=== PATIENT | male | born 1975 | race Caucasian/White ===

== ENCOUNTER 2017-02-09 22:09 | Emergency (ER) | payer SELFPAY ==
--- NOTE | 2017-02-09 23:10 | ER Document Report ---
ED Cardiac - General Mode of Arrival: Ambulatory Information source: Patient TRAVEL OUTSIDE OF THE [place] IN LAST 30 DAYS: No - HPI Patient complains to provider of: Chest pain, Shortness of breath Was the onset of pain: Sudden When did pain begin: 21:15 Is the pain a: New problem Chest pain radiation location: Left jaw, Left arm, Right jaw Chest pain precipitating factors: Coughing Cardiac risk factors: Hypertension, Smoker, + Family history Positive cardiac history: No Associated symptoms: Jaw pain, Shortness of breath Similar symptoms previously: No Recently seen / treated by doctor: No <AUSTIN MELGAR - Last Filed: 02/10/17 02:40> <CHOLO AMANDA - Last Filed: 02/10/17 06:09> <JANETT NERI - Last Filed: 02/10/17 08:55> - General Chief Complaint: Chest pain, jaw pain, L arm pain Stated Complaint: CHEST PAIN Time Seen by Provider: 02/09/17 22:47 Notes: Patient is a 42 year old male presenting to the emergency department for chest pain that was onset this evening around 21:15. Patient states he finished smoking a cigarette and had some sudden onset bilateral jaw pain. Patient then states he had some coughing episodes and felt short of breath. Patient went inside and drank some water, sat down, and then had sudden onset chest pain. Patient states he still has chest pain now in the emergency department. Patient states his pain was in his left side of his chest and it "felt like it was going to explode." Patient states he took a shower with no relief to the chest pain and he also noticed some tingling down the back of his left arm. Patient states he has been taking 2 ibuprofen each morning for about 1 week for some pain in his back. Patient has a history of hypertension, smoking, and his family has a cardiac history. (AUSTIN MELGAR) - Related Data Allergies/Adverse Reactions: No Known Allergies Allergy (Verified 02/10/17 08:31) Past Medical History - General Information source: Patient - Social History Smoking Status: Current Every Day Smoker Cigarette use (# per day): Yes Chew tobacco use (# tins/day): Yes Frequency of alcohol use: Occasional Drug Abuse: None Family History: Other - grandparents [place], grandmother COPD and triple bypass Patient has suicidal ideation: No Patient has homicidal ideation: No - Past Medical History Cardiac Medical History: Reports: Hx Hypertension Surgical Hx: Negative <AUSTIN MELGAR - Last Filed: 02/10/17 02:40> Review of Systems - Review of Systems Constitutional: No symptoms reported EENT: No symptoms reported Cardiovascular: See HPI, Chest pain, Other - jaw pain Respiratory: See HPI, Cough Gastrointestinal: No symptoms reported Genitourinary: No symptoms reported Male Genitourinary: No symptoms reported Musculoskeletal: No symptoms reported Skin: No symptoms reported Hematologic/Lymphatic: No symptoms reported Neurological/Psychological: See HPI, Tingling -: Yes All other systems reviewed and negative <AUSTIN MELGAR - Last Filed: 02/10/17 02:40> Physical Exam <AUSTIN MELGAR - Last Filed: 02/10/17 02:40> <CHOLO AMANDA - Last Filed: 02/10/17 06:09> <JANETT NERI - Last Filed: 02/10/17 08:55> - Vital signs Vitals: Temp Pulse BP Pulse Ox 98.1 F 86 144/109 H 98 02/09/17 22:35 02/09/17 22:35 02/09/17 22:35 02/09/17 22:35 - Notes Notes: GENERAL: Alert, interacts well. No acute distress. HEAD: Normocephalic, atraumatic. EYES: Pupils equal, round, and reactive to light. Extraocular movements intact. ENT: Oral mucosa moist, tongue midline. NECK: Full range of motion. Supple. Trachea midline. LUNGS: Clear to auscultation bilaterally, no wheezes, rales, or rhonchi. No respiratory distress. HEART: Regular rate of 75 and regular rhythm. No murmurs, gallops, or rubs. ABDOMEN: Soft, non-tender. Non-distended. Bowel sounds present in all 4 quadrants. EXTREMITIES: Moves all 4 extremities spontaneously. No edema, radial and dorsalis pedis pulses 2/4 bilaterally. No cyanosis. NEUROLOGICAL: Alert and oriented x3. Normal speech. PSYCH: Normal affect, normal mood. SKIN: Warm, dry, normal turgor. No rashes or lesions noted. (AUSTIN MELGAR) Course - Laboratory Result Diagrams: 02/09/17 22:50 02/09/17 22:50 - Consults [facility] Transfer Time consulted: 12:13 <AUSTIN MELGAR - Last Filed: 02/10/17 02:40> - Laboratory Result Diagrams: 02/09/17 22:50 02/09/17 22:50 <CHOLO AMANDA - Last Filed: 02/10/17 06:09> - Laboratory Result Diagrams: 02/09/17 22:50 02/09/17 22:50 <JANETT NERI - Last Filed: 02/10/17 08:55> - Re-evaluation Re-evalutation: 02/10/17 00:10 Patient has a positive troponin. Recent chest pain resolved with sublingual nitroglycerin tablet but returned with Nitropaste. We will give more sublingual nitroglycerin. We called [facility] for transfer for a N-STEMI. EKG shows no ST elevation. Patient will be started on metoprolol and Lovenox. (AUSTIN MELGAR) 02/10/17 08:55 Patient reevaluated is stable transfer is here to take the patient to the [facility] (JANETT NERI) - Vital Signs Vital signs: Temp Pulse Resp BP Pulse Ox 98.4 F 82 17 122/87 H 96 02/10/17 08:45 02/09/17 22:36 02/10/17 08:02 02/10/17 08:02 02/10/17 08:02 - Laboratory Laboratory results interpreted by me: 02/09/17 02/09/17 22:50 22:50 BUN 22 H Creatine Kinase 210 H CK-MB (CK-2) 5.12 H - Consults [facility] Transfer Reason for consultation: 02/10/17 00:13 Contacted [facility] for possible transfer, they will contact cardiology and call back. 02/10/17 00:20 Call back from [facility]. Spoke with Dr. Lamonte Ulloa who admits the patient for transfer; he will call back if there will be a wait for a bed. (AUSTIN MELGAR) Critical Care Note - Critical Care Note Total time excluding time spent on procedures (mins): 35 <CHOLO AMANDA - Last Filed: 02/10/17 06:09> Discharge <AUSTIN MELGAR - Last Filed: 02/10/17 02:40> <CHOLO AMANDA - Last Filed: 02/10/17 06:09> <JANETT NERI - Last Filed: 02/10/17 08:55> - Discharge Clinical Impression: NSTEMI (non-ST elevated myocardial infarction) Disposition: [facility] Attestation: 02/10/17 01:52 I personally performed the services described in the documentation, reviewed and edited the documentation which was dictated to the scribe in my presence, and it accurately records my words and actions. (CHOLO AMANDA) Scribe Documentation - Scribe Written by Catie:: Catie Buck, 02/10/17 12:17 acting as scribe for :: Trell <AUSTIN MELGAR - Last Filed: 02/10/17 02:40>
[2017-02-09] MEDS: NITROGLYCERIN 0.4 MG/TAB 25 TAB/BOTTLE SL PRN (23:21)
[2017-02-09 23:24] LABS: ABSOLUTE BASOPHILS # (AUTO) 0.1 10^3/uL (0.0-0.2); ABSOLUTE EOSINOPHILS # (AUTO) 0.1 10^3/uL (0.0-0.6); ABSOLUTE LYMPHOCYTES (AUTO) 1.9 10^3/uL (0.5-4.7); ABSOLUTE MONOCYTES (AUTO) 0.7 10^3/uL (0.1-1.4); ABSOLUTE NEUT (AUTO) 6.6 10^3/uL (1.7-8.2); BASOPHILS % (AUTO) 0.7 % (0-2); HEMATOCRIT 45.8 % (37.9-51.0); HEMOGLOBIN 16.1 g/dL (13.5-17.0); HGB HCT DIFFERENCE 2.5; LYMPHOCYTES % (AUTO) 20.4 % (13-45); MEAN CORPUSCULAR HEMOGLOBIN 31.5 pg (27.0-33.4); MEAN CORPUSCULAR HGB CONC 35.1 g/dL (32.0-36.0); MEAN CORPUSCULAR VOLUME 90 fl (80-97); MONOCYTES % (AUTO) 7.2 % (3-13); RED BLOOD COUNT 5.11 10^6/uL (4.35-5.55); RED CELL DISTRIBUTION WIDTH 13.1 % (11.5-14.0); SEGMENTED NEUTROPHILS % (AUTO) 70.7 % (42-78); WHITE BLOOD COUNT 9.3 10^3/uL (4.0-10.5)
[2017-02-09 23:28] LABS: ALANINE AMINOTRANSFERASE 46 U/L (21-72); ALBUMIN 4.3 g/dL (3.5-5.0); ALKALINE PHOSPHATASE 90 U/L (38-126); ANION GAP 14 (5-19); ASPARTATE AMINO TRANSFERASE 29 U/L (17-59); BILIRUBIN,DIRECT 0.2 mg/dL (0.0-0.4); BILIRUBIN,TOTAL 0.3 mg/dL (0.2-1.3); BLOOD UREA NITROGEN 22 mg/dL (7-20); CALCIUM 9.4 mg/dL (8.4-10.2); CARBON DIOXIDE 25 mmol/L (22-30); CHLORIDE 98 mmol/L (98-107); CREATINE KINASE 210 U/L (55-170); CREATININE RESULT 1.03 mg/dL (0.52-1.25); GLUCOSE 106 mg/dL (75-110); SODIUM 137.1 mmol/L (137-145); TOTAL PROTEIN 6.6 g/dL (6.3-8.2)
[2017-02-09] MEDS ORDERED: NITROGLYCERIN 2% OINTMENT 1 GM PACKET TP ONE (23:33)
[2017-02-09 23:39] LABS: CREATINE KINASE MB 5.12 ng/mL (<4.55)
[2017-02-09 23:42] LABS: TROPONIN I 0.244 ng/mL
--- NOTE | 2017-02-09 23:55 | EKG REPORT ---
SEVERITY:- NORMAL ECG - SINUS RHYTHM : Confirmed by: Ganesh Delgado 09-Feb-2017 23:54:42
[2017-02-10] MEDS ORDERED: METOPROLOL TARTRATE 50 MG TABLET PO ONE (00:11)
[2017-02-10] MEDS ORDERED: ENOXAPARIN SODIUM INJ 100 MG/1 ML DISP.SYRIN SUBCUT SCH ×2 (00:15→10:00)
[2017-02-10] MEDS: NITROGLYCERIN 0.4 MG/TAB 25 TAB/BOTTLE SL PRN (00:22)
[2017-02-10 09:02] VITALS: BP 120/79
--- NOTE | 2017-02-10 10:40 | EKG REPORT ---
SEVERITY:- NORMAL ECG - SINUS RHYTHM : Confirmed by: Ana Paula Menendez MD 10-Feb-2017 10:40:16
== END 2017-02-10 09:03 | disposition short-term general hospital (02) ==
LOC: ER 22:09
DX: I21.4 Non-ST elevation (NSTEMI) myocardial infarction (principal); R07.9 Chest pain, unspecified; R68.84 Jaw pain; M79.602 Pain in left arm; R05 Cough; F17.210 Nicotine dependence, cigarettes, uncomplicated
CPT/HCPCS: 36415; 71010; 80053; 82550; 82553; 84484; 85025; 93005; 93010; 99291

== ENCOUNTER 2017-06-22 16:30 | Emergency (ER) | payer SELFPAY ==
--- NOTE | 2017-06-22 16:58 | ER Document Report ---
ED GI/ - General Mode of Arrival: Ambulatory Information source: Patient TRAVEL OUTSIDE OF THE [place] IN LAST 30 DAYS: No - HPI Patient complains to provider of: Abdominal pain Onset: Other - 3 days Timing/Duration: Persistent Quality of pain: Achy Severity at maximum: Moderate Severity in ED: Moderate Pain Level: 4 Location: RLQ, Suprapubic Associated symptoms: Chills, Fever, Hematuria <JAYLEEN ARREDONDO - Last Filed: 06/22/17 17:42> <CATHI PIÑA - Last Filed: 06/22/17 19:50> - General Stated Complaint: STOMACH PAIN Time Seen by Provider: 06/22/17 16:33 - HPI Notes: 06/22/17 17:10 Patient is a 42-year-old male who was sent to the emergency room from radiology department for right iliac artery dissection noted on outpatient CT scan that was being performed, patient was saw primary care provider earlier in the day for a lower abdominal pain this been going on for the past 3-4 days, which is associated with fever and chills, and microscopic hematuria which was found at his doctor visit this morning, he was sent over to get the outpatient CT scan, his last meal was sometime yesterday, he has a history of an HI in January and currently takes Lipitor, Plavix, aspirin, lisinopril and metoprolol, he did not take any of these medications today as he typically takes them at nighttime ( JAYLEEN ARREDONDO) - Related Data Allergies/Adverse Reactions: No Known Allergies Allergy (Verified 06/22/17 17:14) Home Medications: Current Home Medications Aspirin 81 mg PO QHS 06/22/17 [History] Atorvastatin Calcium [Lipitor 40 mg Tablet] 40 mg PO QHS 06/22/17 [History] Clopidogrel Bisulfate [Plavix 75 mg Tablet] 75 mg PO QHS 06/22/17 [History] Lisinopril 10 mg PO QHS 06/22/17 [History] Metoprolol Succinate [Toprol Xl] 12.5 mg PO QHS 06/22/17 [History] Past Medical History - General Information source: Patient - Social History Smoking Status: Current Every Day Smoker Family History: Other - grandparents [place], grandmother COPD and triple bypass - Past Medical History Cardiac Medical History: Reports: Hx Hypertension Renal/ Medical History: Denies: Hx Peritoneal Dialysis <JAYLEEN ARREDONDO - Last Filed: 06/22/17 17:42> Review of Systems - Review of Systems Constitutional: Chills, Fever EENT: No symptoms reported Cardiovascular: No symptoms reported Respiratory: No symptoms reported Gastrointestinal: Abdominal pain Genitourinary: No symptoms reported Male Genitourinary: No symptoms reported Musculoskeletal: No symptoms reported Skin: No symptoms reported Hematologic/Lymphatic: No symptoms reported Neurological/Psychological: No symptoms reported -: Yes All other systems reviewed and negative <JAYLEEN ARREDONDO - Last Filed: 06/22/17 17:42> Physical Exam - Vital signs Interpretation: Normal - General General appearance: Appears well, Alert - HEENT Head: Normocephalic, Atraumatic Eyes: Normal Pupils: PERRL - Respiratory Respiratory status: No respiratory distress Chest status: Nontender Breath sounds: Normal Chest palpation: Normal - Cardiovascular Rhythm: Regular Heart sounds: Normal auscultation Murmur: No - Abdominal Inspection: Normal Distension: No distension Bowel sounds: Normal Tenderness: Tender - Tender to palpate across lower abdomen, mainly in suprapubic region Organomegaly: No organomegaly - Back Back: Normal, Nontender - Extremities General upper extremity: Normal inspection, Nontender, Normal color, Normal ROM , Normal temperature General lower extremity: Normal inspection, Nontender, Normal color, Normal ROM , Normal temperature, Normal weight bearing. No: Luli's sign Foot: Nontender, Other - Right foot, cool to touch, 2+ DP pulses, brisk capillary refill. No: Edema - Neurological Neuro grossly intact: Yes Cognition: Normal Orientation: AAOx4 Wilkinson Coma Scale Eye Opening: Spontaneous Minnie Coma Scale Verbal: Oriented Wilkinson Coma Scale Motor: Obeys Commands Wilkinson Coma Scale Total: 15 Speech: Normal Motor strength normal: LUE, RUE, LLE, RLE Sensory: Normal - Psychological Associated symptoms: Normal affect, Normal mood - Skin Skin Temperature: Warm Skin Moisture: Dry Skin Color: Normal <JAYLEEN ARREDONDO - Last Filed: 06/22/17 17:42> - Vital signs Vitals: Temp Pulse Resp BP Pulse Ox 98.3 F 80 20 126/94 H 100 06/22/17 17:04 06/22/17 17:04 06/22/17 17:04 06/22/17 17:04 06/22/17 17:04 Course - Laboratory Result Diagrams: 06/22/17 17:28 06/22/17 17:28 - Diagnostic Test Radiology reviewed: Image reviewed, Reports reviewed <JAYLEEN ARREDONDO - Last Filed: 06/22/17 17:42> - Laboratory Result Diagrams: 06/22/17 17:28 06/22/17 17:28 <CATHI PIÑA - Last Filed: 06/22/17 19:50> - Re-evaluation Re-evalutation: 06/22/17 17:11 I received a call from Dr. Land, radiology stating that she was sending patient over to the emergency department for evaluation and transfer, likely to [facility] where she already spoke with the vascular surgeon and the interventional radiologist, Dr. Roblero and Dr. Rankin regarding this patient, however they did not feel it was safe for him to travel by private vehicle so they recommended he come to the emergency room so that we could make transfer arrangements by ambulance I did place a call to [facility] transfer center, spoke with Renetta Lynch, requested callback from vascular surgeon regarding this patient for official transfer acceptance 06/22/17 17:38 Patient was discussed with Dr. Rankin, interventional radiologist at [facility] to accept patient for transfer (JAYLEEN ARREDONDO) 06/22/17 19:00 Transport in ED. Patient reevaluated and he is stable for transfer. (CATHI PIÑA) - Vital Signs Vital signs: Temp Pulse Resp BP Pulse Ox 98.1 F 101 H 20 123/90 H 99 06/22/17 18:40 06/22/17 18:40 06/22/17 18:40 06/22/17 18:40 06/22/17 18:40 - Laboratory Laboratory results interpreted by me: 06/22/17 17:28 WBC 11.9 H Absolute Neutrophils 8.5 H Discharge <JAYLEEN ARREDONDO - Last Filed: 06/22/17 17:42> <CATHI PIÑA - Last Filed: 06/22/17 19:50> - Discharge Clinical Impression: Iliac artery dissection Condition: Serious Disposition: [facility] Referrals: LAURA RODRIGUEZ MD [Primary Care Provider] - Follow up as needed
--- NOTE | 2017-06-22 17:30 | RADIOLOGY REPORT (SQ) ---
EXAM DESCRIPTION: CHEST PA/LAT COMPLETED DATE/TIME: 06/22/2017 5:20 pm REASON FOR STUDY: pain COMPARISON: 02/09/2017 EXAM PARAMETERS: NUMBER OF VIEWS: two views TECHNIQUE: Digital Frontal and Lateral radiographic views of the chest acquired. RADIATION DOSE: NA LIMITATIONS: none FINDINGS: LUNGS AND PLEURA: No opacities, masses or pneumothorax. No pleural effusion. MEDIASTINUM AND HILAR STRUCTURES: No masses or contour abnormalities. HEART AND VASCULAR STRUCTURES: Heart normal size. No evidence for failure. BONES: No acute findings. HARDWARE: None in the chest. OTHER: No other significant finding. IMPRESSION: NO SIGNIFICANT RADIOGRAPHIC FINDING IN THE CHEST. TECHNICAL DOCUMENTATION: JOB ID: [id number] [employer] [facility]- All Rights Reserved
[2017-06-22 17:39] LABS: ABSOLUTE BASOPHILS # (AUTO) 0.1 10^3/uL (0.0-0.2); ABSOLUTE EOSINOPHILS # (AUTO) 0.1 10^3/uL (0.0-0.6); ABSOLUTE LYMPHOCYTES (AUTO) 2.1 10^3/uL (0.5-4.7); ABSOLUTE MONOCYTES (AUTO) 1.1 10^3/uL (0.1-1.4); ABSOLUTE NEUT (AUTO) 8.5 10^3/uL (1.7-8.2); BASOPHILS % (AUTO) 0.6 % (0-2); EOSINOPHILS % (AUTO) 1.2 % (0-6); HEMATOCRIT 46.5 % (37.9-51.0); HEMOGLOBIN 16.1 g/dL (13.5-17.0); HGB HCT DIFFERENCE 1.8; LYMPHOCYTES % (AUTO) 17.6 % (13-45); MEAN CORPUSCULAR HEMOGLOBIN 32.1 pg (27.0-33.4); MEAN CORPUSCULAR HGB CONC 34.5 g/dL (32.0-36.0); MEAN CORPUSCULAR VOLUME 93 fl (80-97); MONOCYTES % (AUTO) 9.3 % (3-13); RED CELL DISTRIBUTION WIDTH 12.9 % (11.5-14.0); SEGMENTED NEUTROPHILS % (AUTO) 71.3 % (42-78); WHITE BLOOD COUNT 11.9 10^3/uL (4.0-10.5)
[2017-06-22 17:51] LABS: PROTHROMBIN TIME 13.6 SEC (11.4-15.4)
[2017-06-22 17:52] LABS: PARTIAL THROMBOPLASTIN TIME 29.5 SEC (23.5-35.8)
[2017-06-22 18:02] LABS: ALANINE AMINOTRANSFERASE 40 U/L (21-72); ALKALINE PHOSPHATASE 111 U/L (38-126); ANION GAP 12 (5-19); ASPARTATE AMINO TRANSFERASE 18 U/L (17-59); BILIRUBIN,DIRECT 0.4 mg/dL (0.0-0.4); BILIRUBIN,TOTAL 0.9 mg/dL (0.2-1.3); BLOOD UREA NITROGEN 14 mg/dL (7-20); CALCIUM 9.2 mg/dL (8.4-10.2); CARBON DIOXIDE 24 mmol/L (22-30); CHLORIDE 101 mmol/L (98-107); CREATININE RESULT 1.03 mg/dL (0.52-1.25); GLUCOSE 82 mg/dL (75-110); POTASSIUM 4.4 mmol/L (3.6-5.0); SODIUM 137.1 mmol/L (137-145); TOTAL PROTEIN 6.6 g/dL (6.3-8.2)
[2017-06-22 18:59] VITALS: BP 123/90
[2017-06-22] MEDS ORDERED: MORPHINE SULFATE 10 MG/ML INJ IV SCH (20:00)
== END 2017-06-22 19:04 | disposition short-term general hospital (02) ==
LOC: ER 16:30
DX: I77.72 Dissection of iliac artery (principal); R10.30 Lower abdominal pain, unspecified; Z79.899 Other long term (current) drug therapy; F17.200 Nicotine dependence, unspecified, uncomplicated
CPT/HCPCS: 99285; 96374; 36415; 85025; 85610; 85730; 80053; 71020; J2270

== ENCOUNTER → 2017-06-22 | Outpatient (CLI) | payer SELFPAY ==
--- NOTE | 2017-06-22 15:20 | RADIOLOGY REPORT (SQ) ---
EXAM DESCRIPTION: CT ABD/PELVIS NO ORAL OR IV COMPLETED DATE/TIME: 06/22/2017 2:39 pm REASON FOR STUDY: ABD PAIN, BILAT LOWER QUAD (R10.31, R10.32) R10.31 RIGHT LOWER QUADRANT PAIN R10. 32 LEFT LOWER QUADRANT PAIN COMPARISON: No previous TECHNIQUE: CT scan of the abdomen and pelvis performed without intravenous or oral contrast. Images reviewed with lung, soft tissue, and bone windows. Reconstructed coronal and sagittal MPR images revi ewed. All images stored on PACS. All CT scanners at this facility use dose modulation, iterative reconstruction, and/or weight based d osing when appropriate to reduce radiation dose to as low as reasonably achievable (ALARA). [facility]: Dose Right [facility]: CareDose [facility]: Dose Right [facility]: Teradose 4D [facility]: [employer] RADIATION DOSE: Up-to-date CT equipment and radiation dose reduction techniques were employed. CTDIv ol: 7.1 mGy. DLP: 364 mGy-cm.mGy. LIMITATIONS: None. FINDINGS: Patient gives a 2 to 3 day history of intense pelvic pain inferior to the level of the umb ilicus, on axial images 45 through 56, there is abnormal deep retroperitoneal stranding in the fat al jaun the distal abdominal aorta and left proximal common iliac artery. Arteritis or dissection could be present. This finding was discussed with Miriam NAYLOR, follow-up CT angio abdomen pelvis will be performed. LOWER CHEST: No significant findings. No nodules or infiltrates. NON-CONTRASTED LIVER, SPLEEN, ADRENALS: 1 cm cyst or hemangioma left lobe liver lateral to the falcif orm ligament on axial image 18. Spleen, adrenal glands unremarkable. PANCREAS: No masses. No peripancreatic inflammatory changes. GALLBLADDER: No identified stones by CT criteria. No inflammatory changes to suggest cholecystitis. RIGHT KIDNEY AND URETER: No suspicious masses. Assessment limited by lack of IV contrast. No signif icant calcifications. No hydronephrosis or hydroureter. LEFT KIDNEY AND URETER: No suspicious masses. Assessment limited by lack of IV contrast. No signifi cant calcifications. No hydronephrosis or hydroureter. AORTA AND RETROPERITONEUM: No abdominal aortic aneurysm. Other findings as above. BOWEL AND PERITONEAL CAVITY: No obvious masses or inflammatory changes. No free fluid. APPENDIX: Surgically absent PELVIS, BLADDER, AND ABDOMINAL WALL:No abnormal masses. No free fluid. Bladder normal. BONES: No significant findings. OTHER: No other significant finding. IMPRESSION: Inflammation in the deep retroperitoneum para-aortic region, tracking along the left pro ximal common iliac artery. Differential includes vascular dissection versus large vessel arteritis. CT angio will be performed shortly for followup. COMMENT: Quality ID # 436: Final reports with documentation of one or more dose reduction techniques (e.g., Automated exposure control, adjustment of the mA and/or kV according to patient size, use of iterative reconstruction technique) TECHNICAL DOCUMENTATION: JOB ID: [id number] 2008 [employer]- All Rights Reserved
--- NOTE | 2017-06-22 16:11 | RADIOLOGY REPORT (SQ) ---
EXAM DESCRIPTION: CTA ABDOMEN/PELVIS W WO COMPLETED DATE/TIME: 06/22/2017 3:37 pm REASON FOR STUDY: POSSIBLE DISSECTION UMBILICAL PAIN R10.31 RIGHT LOWER QUADRANT PAIN R10.32 LEFT LOWER QUADRANT PAIN COMPARISON: CT abdomen pelvis without IV contrast 06/22/2017 TECHNIQUE: CT scan of the abdominal aorta extending to the right and left common femoral bifurcation performed with and without intravenous contrast using helical scanning technique with dynamic intrav enous contrast injection. Images reviewed with lung, soft tissue, and bone windows. Reconstructed cor onal and sagittal MPR images reviewed. All images stored on PACS. Advanced 3D imaging as volume rendering, MIPS, SSD performed? yes All CT scanners at this facility use dose modulation, iterative reconstruction, and/or weight based d osing when appropriate to reduce radiation dose to as low as reasonably achievable (ALARA). [facility]: Dose Right [facility]: CareDose [facility]: Dose Right [facility]: Teradose 4D [facility]: [employer] CONTRAST TYPE AND DOSE: 52.3 mL Isovue 370- low osmolar. RENAL FUNCTION: Creatinine 1.1 LIMITATIONS: None. FINDINGS: AORTA AND VESSELS: There is a left proximal common iliac artery dissection, from the origi n of the left proximal common iliac artery down to the level of the left common iliac bifurcation int o the external and internal iliac vessels. Over 50% diameter narrowing of the proximal left common i liac artery is present. There is a false lumen that opacifies with contrast along the dorsal aspect of the left common iliac artery, with mild aneurysmal dilatation at this level 17 mm in diameter. Mi nimal inflammatory stranding and along the periphery of the left common iliac artery. Left internal and external iliac arteries are unremarkable. Right common iliac artery is intact. Remainder of the abdominal aorta and major visceral arteries are unremarkable. 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 This result was discussed with Miriam NAYLOR, 1600 hours 06/22/2017 LUNG BASES: No significant findings. No nodules or infiltrates. LIVER: 1 cm hemangioma in the left lobe liver axial image 40. SPLEEN: Normal size. No focal lesions. PANCREAS: No masses. No significant calcifications. No adjacent inflammation or peripancreatic fluid collections. Pancreatic duct not dilated. GALLBLADDER: No identified stones by CT criteria. No inflammatory changes to suggest cholecystitis. ADRENAL GLANDS: No significant masses or asymmetry. RIGHT KIDNEY AND URETER: No mass, calculi or urinary tract obstruction. LEFT KIDNEY AND URETER: No mass, calculi or urinary tract obstruction. RETROPERITONEUM: No retroperitoneal adenopathy, hemorrhage or masses. BOWEL AND PERITONEAL CAVITY: No masses or inflammatory changes. No free fluid or peritoneal masses. Few colonic diverticuli without CT evidence of acute diverticulitis. APPENDIX: Surgically absent ABDOMINAL WALL: No masses. No hernias. BONY STRUCTURES: No significant or acute findings. PELVIS: No other significant finding. 3-D IMAGING: Confirms the above findings. IMPRESSION: Left proximal common iliac artery dissection. COMMENT: Pertinent findings on the imaging study reported as a CRITICAL RESULT to VALDEMAR RYDER at16:00 on 06/22/2017. Category of Critical Result: Left proximal common iliac artery dissection TECHNICAL DOCUMENTATION: JOB ID: [id number] Quality ID # [id number]: Final reports with documentation of one or more dose reduction techniques (e.g., Au tomated exposure control, adjustment of the mA and/or kV according to patient size, use of iterative reconstruction technique) 2010 [employer]- All Rights Reserved
== END ==
LOC: RAD 14:20
PROVIDERS: ATTEND Physician Assistant
DX: R10.31 Right lower quadrant pain (principal); R10.32 Left lower quadrant pain
CPT/HCPCS: 74174; 74176; 82565

== ENCOUNTER → 2017-10-22 | Outpatient (CLI) | payer BC, MEDICAID ==
--- NOTE | 2017-10-22 16:55 | DRAGON STRESS TEST REPORT ---
EXERCISE CARDIOLITE STRESS TEST USING SINGLE PHOTON EMMISION COMPUTERIZED TOMOGRAPHIC. DATE OF PROCEDURE: October 22, 2017, INDICATION : Chest pain CARDIAC RISK FACTORS: Hypertension, dyslipidemia, history of non-STEMI RESTING EKG: Sinus rhythm without any baseline ST-T wave changes. STRESS EKG: No significant changes noted with exercise stress test. PROCEDURE REPORT: Baseline heart rate 89 beats per minute with blood pressure of 106/82. Patient had no significant complaints. Patient exercised for a total of 11 minutes on standard Sarkis protocol.. Exercise stopped because of fatigue and shortness of breath. No chest pain reported.. No significant EKG changes were noted. Patient had no significant complaints during the procedure or postprocedure. Patient achieved a peak heart rate of 153 bpm which is 85% of predicted maximum. Peak blood pressure was noted to be 151/98. Double product achieved was 21 kcal. CONCLUSIONS: Clinically and electrocardiographically negative stress test at adequate double product.. NUCLEAR DATA: At rest the patient was given 13.09 millicuries of technetium 99 sestamibi injected intravenously. As per protocol rest gated SPECT images were obtained. Subsequently the stress dose of 37.7 millicuries of technetium 99 sestamibi was injected intravenously at peak exercise and patient continued to exercise for additional 1-2 minutes. As per protocol stress gated images were obtained. NUCLEAR INTERPRETATION: Both raw and processed data were used for interpretation. Visual, qualitative, computer-generated quantitative data was used. There was good myocardial uptake of technetium compound. Motion artifact and soft tissue attenuations were noted. Increased visceral uptake was noted. No definitive areas of transient perfusion defect noted, mild decreased uptake was noted in the basal interventricular septal area in the stress images but is felt to be artifactual as there were no corresponding wall motion abnormalities. No definitive areas of fixed perfusion defect or scars noted. EKG gated imaging showed LV EF at 64 %, rest and stress gated EF similar visually. T. I D. ratio was 0.96. Lung heart ratio noted to be within normal limits 0.35. No significant extracardiac and abnormal radiotracer activities were noted. RV free wall uptake was noted to be WNL. IMPRESSION: Also refer to comments under nuclear interpretation. Also test results needs to be interpreted in the context of pretest probability. 1. No definitive areas of transient perfusion defect noted. 2. There is no definitive scintigraphic evidence of myocardial infarction/scar. 3. EKG gated imaging shows left ventricular ejection fraction of approx. 64 %. 4. Patient noted to have good exercise tolerance. No significant EKG changes or clinical angina noted at adequate double product. RECOMMENDATIONS: Aggressive risk factor modification and medical management. Further evaluation may be needed if continued symptoms or other high risk indicators are noted on clinical evaluation. MTDD
== END ==
LOC: RAD 07:08
PROVIDERS: ATTEND Internal Medicine Cardiovascular Disease
DX: R07.9 Chest pain, unspecified (principal); I10 Essential (primary) hypertension; E78.5 Hyperlipidemia, unspecified; I25.2 Old myocardial infarction
CPT/HCPCS: 93017; 78452; A9500; Q9969